=== PATIENT | male | born 1985 | race Caucasian/White ===

== ENCOUNTER 2024-06-16 09:48 | Day surgery (SDC) | payer BC ==
[2024-06-16] MEDS ORDERED: propofoL 500 MG/50 ML 50 ML ONE (09:58)
[2024-06-16] MEDS ORDERED: Lidocaine 2% 5 ML SDV ONE (09:58)
[2024-06-16] MEDS: Lactated Ringers 1,000 ML IV SCH (10:13)
[2024-06-16] MEDS ORDERED: Lactated Ringers 1,000 ML IV SCH (11:00)
== END 2024-06-16 11:38 | disposition home or self-care (01) ==
LOC: MW.SDS 09:48
PROVIDERS: ATTEND Surgery
DX: K64.8 Other hemorrhoids (principal); E03.9 Hypothyroidism, unspecified; R63.4 Abnormal weight loss; Z79.890 Hormone replacement therapy; Z79.899 Other long term (current) drug therapy; Z87.891 Personal history of nicotine dependence
CPT/HCPCS: 45378; J2704; J7120; J3490